=== PATIENT | female | born 1970 | race Caucasian/White ===

== ENCOUNTER 2018-04-07 20:56 | Emergency (ER) | payer BC ==
[~2018-04-07] VITALS: Ht 154.9 cm; Wt 77.6 kg
[2018-04-07 21:37] VITALS: BP 130/88; Ht 154.9 cm; Wt 77.6 kg
== END 2018-04-08 00:06 | disposition home or self-care (01) ==
LOC: ED 20:56
DX: S51.812A Laceration without foreign body of left forearm, initial encounter (principal); S51.811A Laceration without foreign body of right forearm, initial encounter; J45.909 Unspecified asthma, uncomplicated; M65.319 Trigger thumb, unspecified thumb; Z88.2 Allergy status to sulfonamides; W54.0XXA Bitten by dog, initial encounter; Y93.89 Activity, other specified; Y92.89 Other specified places as the place of occurrence of the external cause; Y99.8 Other external cause status
CPT/HCPCS: 90715